=== PATIENT | female | born 1935 | race Two or more races ===

== ENCOUNTER 2022-07-24 12:35 | Inpatient (IN) | payer MEDICARE, OTHER ==
[~2022-07-24] VITALS: Ht 157.5 cm; Wt 54.5 kg
[~2022-07-24 12:35] MED LIST: BP PILL; [UNRECOGNIZED DRUG - REMARK]
[2022-07-24] MEDS ORDERED: 0.9% SODIUM CHLORIDE 10 ML SYRINGE IVP PRN ×2 (14:45→20:30)
[2022-07-24 15:11] LABS: BASOPHILS % (AUTO) 0.4 % (0.0-2.0); EOSINOPHILS % (AUTO) 0.1 % (1.0-6.0); HEMATOCRIT 33.6 % (36-46); HEMOGLOBIN 11.5 g/dL (12.0-16.0); LYMPHOCYTES # (AUTO) 1.9 K/uL (1.0-4.8); LYMPHOCYTES % (AUTO) 22.9 % (22.0-44.0); MEAN CORPUSCULAR HEMOGLOBIN 33.7 pg (26.0-34.0); MEAN CORPUSCULAR HGB CONC 34.2 G/dL (31.0-37.0); MEAN CORPUSCULAR VOLUME 99 fL (80-100); MONOCYTES # (AUTO) 0.9 K/uL (0.1-1.0); NEUTROPHILS # (AUTO) 5.4 K/uL (1.8-7.7); NEUTROPHILS % (AUTO) 65.6 % (40.0-70.0); PLATELET COUNT (AUTO) 211 K/uL (150-450); RED BLOOD CELL COUNT(AUTO) 3.41 MIL/uL (4.00-5.20); RED CELL DISTRIBUTION WIDTH 13.7 % (11.5-14.5)
[2022-07-24 15:16] LABS: COVID AG,FIA SOURCE NASAL SWAB
[2022-07-24 15:22] LABS: CALCIUM, TOTAL 8.6 mg/dL (8.8-10.5); CREATININE 1.55 mg/dL (0.60-1.30); POTASSIUM 3.7 mmol/L (3.5-5.1)
[2022-07-24 15:29] LABS: BILIRUBIN,TOTAL 1.1 mg/dL (0.1-1.0); TOTAL PROTEIN, SERUM 7.6 g/dL (6.4-8.2)
[2022-07-24 15:31] LABS: LACTIC ACID 1.1 mmol/L (0.4-2.0)
[2022-07-24 15:37] LABS: INFLUENZA TYPE A NEGATIVE FOR TYPE A (NEGATIVE); INFLUENZA TYPE B NEGATIVE FOR TYPE B (NEGATIVE)
[2022-07-24] MEDS ORDERED: ACETAMINOPHEN 500 MG TABLET PO ONE (16:15)
[2022-07-24 16:16] LABS: APPEARANCE,URINE CLEAR (CLEAR); BILIRUBIN,URINE NEGATIVE (NEGATIVE); GLUCOSE, URINE (UA) NEGATIVE (NEGATIVE); LEUKOCYTE ESTERASE ,URINE NEGATIVE (NEGATIVE); NITRATE,URINE NEGATIVE (NEGATIVE); OCCULT BLOOD,URINE NEGATIVE (NEGATIVE); PH,URINE 5.5 (5.0-8.0); PROTEIN,URINE 30-70 mg/dL (NEGATIVE); SPECIFIC GRAVITIY, URINE 1.022 (1.003-1.030); UROBILINOGEN,URINE <=1.0 mg/dL (<=1.0)
[2022-07-24] MEDS ORDERED: ACETAMINOPHEN 325 MG TABLET PO PRN ×2 (20:30→21:15)
[2022-07-24] MEDS ORDERED: ONDANSETRON HCL 4 MG/2 ML VIAL IVP PRN (20:30)
[2022-07-24] MEDS ORDERED: MORPHINE SULFATE 2 MG/ML SYRINGE IVP PRN (21:15)
[2022-07-24] MEDS ORDERED: MAGNESIUM HYDROXIDE SUSPENSION 30 ML UDCUP PO PRN (21:15)
[2022-07-24] MEDS ORDERED: REMDESIVIR 200 MG in SODIUM CHLORIDE 0.9% 250 ML IV ONE (22:00)
[2022-07-24] MEDS: OXYGEN THERAPY IH SCH (22:41)
[2022-07-24 22:47] LABS: D-DIMER 1.6 mg/L FEU (0.00-0.50); PROTHROMBIN TIME 10.8 SEC (9.4-11.6)
[2022-07-25] VITALS (7 sets, daily range): BP systolic 115–193; BP diastolic 57–79
[2022-07-25] MEDS: HydrALAZINE HCL 20 MG/ML VIAL IVP PRN (01:06)
[2022-07-25 06:46] LABS: BASOPHILS % (AUTO) 0.4 % (0.0-2.0); EOSINOPHILS % (AUTO) 0.3 % (1.0-6.0); HEMATOCRIT 36.4 % (36-46); HEMOGLOBIN 12.5 g/dL (12.0-16.0); LYMPHOCYTES # (AUTO) 0.8 K/uL (1.0-4.8); LYMPHOCYTES % (AUTO) 8.4 % (22.0-44.0); MEAN CORPUSCULAR HEMOGLOBIN 33.7 pg (26.0-34.0); MEAN CORPUSCULAR HGB CONC 34.4 G/dL (31.0-37.0); MEAN CORPUSCULAR VOLUME 98 fL (80-100); MONOCYTES # (AUTO) 0.4 K/uL (0.1-1.0); MONOCYTES % (AUTO) 4.6 % (2.0-9.0); NEUTROPHILS # (AUTO) 7.8 K/uL (1.8-7.7); PLATELET COUNT (AUTO) 211 K/uL (150-450); RED BLOOD CELL COUNT(AUTO) 3.71 MIL/uL (4.00-5.20); RED CELL DISTRIBUTION WIDTH 13.5 % (11.5-14.5)
[2022-07-25 06:49] LABS: NEUTROPHILS % (AUTO) 86.3 % (40.0-70.0)
[2022-07-25 07:04] LABS: BILIRUBIN,TOTAL 0.9 mg/dL (0.1-1.0); CALCIUM, TOTAL 8.4 mg/dL (8.8-10.5); CREATININE 1.32 mg/dL (0.60-1.30); POTASSIUM 3.7 mmol/L (3.5-5.1); TOTAL PROTEIN, SERUM 7.7 g/dL (6.4-8.2)
[2022-07-25] MEDS: PANTOPRAZOLE SODIUM 40 MG DR TABLET PO SCH (08:19)
[2022-07-25] MEDS: DOCUSATE SODIUM 100 MG CAPSULE PO SCH ×2 (08:19→21:00)
[2022-07-25] MEDS: HEPARIN SODIUM,PORCINE 5,000 UNITS/ML VIAL SQ SCH ×3 (08:19→15:31)
[2022-07-25] MEDS: DEXAMETHASONE 4 MG TABLET PO SCH (08:19)
[2022-07-25] MEDS: OXYGEN THERAPY IH SCH ×2 (08:20→20:00)
[2022-07-25] MEDS: ATORVASTATIN CALCIUM 20 MG TABLET PO SCH (17:25)
[2022-07-25] MEDS: ASPIRIN 81 MG DR TABLET PO SCH (17:25)
[2022-07-25] MEDS: METOPROLOL TARTRATE 25 MG TABLET PO SCH (20:57)
[2022-07-25] MEDS: REMDESIVIR 100 MG in SODIUM CHLORIDE 0.9% 250 ML IV SCH (20:59)
[2022-07-26 04:50] VITALS: BP 144/61
[2022-07-26 06:40] LABS: BASOPHILS % (AUTO) 0.2 % (0.0-2.0); EOSINOPHILS % (AUTO) 0 % (1.0-6.0); HEMATOCRIT 33.8 % (36-46); HEMOGLOBIN 11.7 g/dL (12.0-16.0); LYMPHOCYTES # (AUTO) 1.7 K/uL (1.0-4.8); LYMPHOCYTES % (AUTO) 19.9 % (22.0-44.0); MEAN CORPUSCULAR HEMOGLOBIN 33.8 pg (26.0-34.0); MEAN CORPUSCULAR HGB CONC 34.6 G/dL (31.0-37.0); MEAN CORPUSCULAR VOLUME 98 fL (80-100); MONOCYTES # (AUTO) 0.6 K/uL (0.1-1.0); MONOCYTES % (AUTO) 6.9 % (2.0-9.0); NEUTROPHILS # (AUTO) 6.2 K/uL (1.8-7.7); PLATELET COUNT (AUTO) 214 K/uL (150-450); RED BLOOD CELL COUNT(AUTO) 3.46 MIL/uL (4.00-5.20); RED CELL DISTRIBUTION WIDTH 13.5 % (11.5-14.5)
[2022-07-26 07:12] LABS: ALBUMIN 2.8 g/dL (3.4-5.0); BILIRUBIN,TOTAL 0.6 mg/dL (0.1-1.0); CALCIUM, TOTAL 8.2 mg/dL (8.8-10.5); CHOL/HDL RATIO 3.8 (3.9-5.7); CREATININE 1.57 mg/dL (0.60-1.30); POTASSIUM 3.5 mmol/L (3.5-5.1); TOTAL PROTEIN, SERUM 7.2 g/dL (6.4-8.2)
[2022-07-26 07:56] VITALS: BP 140/60
[2022-07-26] MEDS: OXYGEN THERAPY IH SCH ×2 (08:00→20:00)
[2022-07-26] MEDS: DEXAMETHASONE 4 MG TABLET PO SCH (08:55)
[2022-07-26] MEDS: HEPARIN SODIUM,PORCINE 5,000 UNITS/ML VIAL SQ SCH ×3 (08:55→16:00)
[2022-07-26] MEDS: METOPROLOL TARTRATE 25 MG TABLET PO SCH ×2 (08:55→20:17)
[2022-07-26] MEDS: PANTOPRAZOLE SODIUM 40 MG DR TABLET PO SCH (08:56)
[2022-07-26] MEDS: DOCUSATE SODIUM 100 MG CAPSULE PO SCH ×2 (08:56→20:17)
[2022-07-26] MEDS: ATORVASTATIN CALCIUM 20 MG TABLET PO SCH (08:56)
[2022-07-26] MEDS: ASPIRIN 81 MG DR TABLET PO SCH (08:56)
[2022-07-26] MEDS: AmLODIPine BESYLATE 5 MG TABLET PO SCH (08:56)
[2022-07-26 11:29] VITALS: BP 131/55
[2022-07-26 15:52] VITALS: BP 157/73
[2022-07-26 20:54] VITALS: BP 156/73
[2022-07-27] VITALS (7 sets, daily range): BP systolic 134–161; BP diastolic 64–76
[2022-07-27] MEDS: REMDESIVIR 100 MG in SODIUM CHLORIDE 0.9% 250 ML IV SCH ×2 (00:05→21:33)
[2022-07-27] MEDS: HEPARIN SODIUM,PORCINE 5,000 UNITS/ML VIAL SQ SCH ×3 (00:05→16:25)
[2022-07-27 06:41] LABS: BASOPHILS % (AUTO) 0.2 % (0.0-2.0); EOSINOPHILS % (AUTO) 0 % (1.0-6.0); HEMATOCRIT 39.5 % (36-46); HEMOGLOBIN 13.4 g/dL (12.0-16.0); LYMPHOCYTES # (AUTO) 1.6 K/uL (1.0-4.8); LYMPHOCYTES % (AUTO) 16.1 % (22.0-44.0); MEAN CORPUSCULAR HEMOGLOBIN 33.2 pg (26.0-34.0); MEAN CORPUSCULAR VOLUME 98 fL (80-100); MONOCYTES # (AUTO) 0.7 K/uL (0.1-1.0); MONOCYTES % (AUTO) 7.5 % (2.0-9.0); NEUTROPHILS # (AUTO) 7.6 K/uL (1.8-7.7); NEUTROPHILS % (AUTO) 76.2 % (40.0-70.0); PLATELET COUNT (AUTO) 244 K/uL (150-450); RED BLOOD CELL COUNT(AUTO) 4.05 MIL/uL (4.00-5.20); RED CELL DISTRIBUTION WIDTH 13.8 % (11.5-14.5)
[2022-07-27 07:03] LABS: ALBUMIN 3.2 g/dL (3.4-5.0); BILIRUBIN,TOTAL 0.6 mg/dL (0.1-1.0); CALCIUM, TOTAL 8.5 mg/dL (8.8-10.5); CREATININE 1.54 mg/dL (0.60-1.30); POTASSIUM 3.4 mmol/L (3.5-5.1); TOTAL PROTEIN, SERUM 8.1 g/dL (6.4-8.2)
[2022-07-27] MEDS ORDERED: POTASSIUM CHLORIDE 20 MEQ ER TABLET PO ONE (09:15)
[2022-07-27] MEDS: METOPROLOL TARTRATE 25 MG TABLET PO SCH ×2 (09:22→21:33)
[2022-07-27] MEDS: ATORVASTATIN CALCIUM 20 MG TABLET PO SCH (09:22)
[2022-07-27] MEDS: ASPIRIN 81 MG DR TABLET PO SCH (09:22)
[2022-07-27] MEDS: PANTOPRAZOLE SODIUM 40 MG DR TABLET PO SCH (09:23)
[2022-07-27] MEDS: DEXAMETHASONE 4 MG TABLET PO SCH (09:23)
[2022-07-27] MEDS: DOCUSATE SODIUM 100 MG CAPSULE PO SCH ×2 (09:23→21:33)
[2022-07-27] MEDS: AmLODIPine BESYLATE 5 MG TABLET PO SCH (09:23)
[2022-07-27] MEDS: OXYGEN THERAPY IH SCH (09:25)
[2022-07-28] MEDS: HEPARIN SODIUM,PORCINE 5,000 UNITS/ML VIAL SQ SCH ×3 (00:03→16:58)
[2022-07-28] MEDS: REMDESIVIR 100 MG in SODIUM CHLORIDE 0.9% 250 ML IV SCH ×2 (00:15→21:15)
[2022-07-28 04:15] VITALS: BP 154/89
[2022-07-28 07:27] VITALS: BP 148/76
[2022-07-28 07:46] LABS: ALBUMIN 3.1 g/dL (3.4-5.0); BILIRUBIN,TOTAL 0.6 mg/dL (0.1-1.0); CALCIUM, TOTAL 8.2 mg/dL (8.8-10.5); CREATININE 1.42 mg/dL (0.60-1.30); POTASSIUM 3.9 mmol/L (3.5-5.1); TOTAL PROTEIN, SERUM 7.6 g/dL (6.4-8.2)
[2022-07-28] MEDS: OXYGEN THERAPY IH SCH ×2 (08:00→20:00)
[2022-07-28] MEDS: AmLODIPine BESYLATE 10 MG TABLET PO SCH (09:14)
[2022-07-28] MEDS: DEXAMETHASONE 4 MG TABLET PO SCH (09:14)
[2022-07-28] MEDS: METOPROLOL TARTRATE 25 MG TABLET PO SCH ×2 (09:14→21:15)
[2022-07-28] MEDS: ATORVASTATIN CALCIUM 20 MG TABLET PO SCH (09:15)
[2022-07-28] MEDS: PANTOPRAZOLE SODIUM 40 MG DR TABLET PO SCH (09:15)
[2022-07-28] MEDS: DOCUSATE SODIUM 100 MG CAPSULE PO SCH ×2 (09:15→21:15)
[2022-07-28] MEDS: ASPIRIN 81 MG DR TABLET PO SCH (09:15)
[2022-07-28 10:55] VITALS: BP 140/72
[2022-07-28 15:01] VITALS: BP 144/76
[2022-07-28 19:41] VITALS: BP 124/57
[2022-07-28] MEDS: HYDROCODONE/ACETAMINOPHEN 5-325 MG TABLET PO PRN (21:15)
[2022-07-28] MEDS: ZOLPIDEM TARTRATE 5 MG TABLET PO PRN (21:15)
[2022-07-29] MEDS: HEPARIN SODIUM,PORCINE 5,000 UNITS/ML VIAL SQ SCH ×3 (00:03→17:00)
[2022-07-29 03:58] VITALS: BP 141/59
[2022-07-29 07:11] VITALS: BP 142/68
[2022-07-29] MEDS: OXYGEN THERAPY IH SCH ×2 (08:00→20:03)
[2022-07-29] MEDS: AmLODIPine BESYLATE 10 MG TABLET PO SCH (08:46)
[2022-07-29] MEDS: PANTOPRAZOLE SODIUM 40 MG DR TABLET PO SCH (08:46)
[2022-07-29] MEDS: DOCUSATE SODIUM 100 MG CAPSULE PO SCH ×2 (08:46→20:36)
[2022-07-29] MEDS: ATORVASTATIN CALCIUM 20 MG TABLET PO SCH (08:46)
[2022-07-29] MEDS: DEXAMETHASONE 4 MG TABLET PO SCH (08:47)
[2022-07-29] MEDS: ASPIRIN 81 MG DR TABLET PO SCH (08:47)
[2022-07-29] MEDS: METOPROLOL TARTRATE 25 MG TABLET PO SCH ×2 (08:49→20:36)
[2022-07-29] MEDS ORDERED: METO25 PO (09:05)
[2022-07-29] MEDS ORDERED: AMLO-258 PO (09:05)
[2022-07-29] MEDS ORDERED: ATOR20TA65 PO (09:05)
[2022-07-29] MEDS ORDERED: ASPI-1444 PO (09:05)
[2022-07-29 10:51] VITALS: BP 146/78
[2022-07-29 15:15] VITALS: BP 132/68
[2022-07-29 19:48] VITALS: BP 161/78
[2022-07-29] MEDS: HYDROCODONE/ACETAMINOPHEN 5-325 MG TABLET PO PRN (20:36)
[2022-07-29] MEDS: ZOLPIDEM TARTRATE 5 MG TABLET PO PRN (20:37)
[2022-07-29 20:39] VITALS: BP 159/75
[2022-07-30 00:54] VITALS: BP 165/67
[2022-07-30 05:50] VITALS: BP 169/70
[2022-07-30] MEDS: HydrALAZINE HCL 20 MG/ML VIAL IVP PRN (06:08)
[2022-07-30 07:22] VITALS: BP 158/78
[2022-07-30] MEDS: METOPROLOL TARTRATE 25 MG TABLET PO SCH ×2 (09:10→20:23)
[2022-07-30] MEDS: ASPIRIN 81 MG DR TABLET PO SCH (09:10)
[2022-07-30] MEDS: AmLODIPine BESYLATE 10 MG TABLET PO SCH (09:12)
[2022-07-30] MEDS: DOCUSATE SODIUM 100 MG CAPSULE PO SCH ×2 (09:12→20:24)
[2022-07-30] MEDS: DEXAMETHASONE 4 MG TABLET PO SCH (09:12)
[2022-07-30] MEDS: HEPARIN SODIUM,PORCINE 5,000 UNITS/ML VIAL SQ SCH ×3 (09:12→17:50)
[2022-07-30] MEDS: PANTOPRAZOLE SODIUM 40 MG DR TABLET PO SCH (09:12)
[2022-07-30] MEDS: ATORVASTATIN CALCIUM 20 MG TABLET PO SCH (09:12)
[2022-07-30] MEDS: OXYGEN THERAPY IH SCH ×2 (09:22→20:00)
[2022-07-30 11:00] VITALS: BP 121/56
[2022-07-30 15:00] VITALS: BP 136/68
[2022-07-30 19:10] VITALS: BP 141/74
[2022-07-30] MEDS: ZOLPIDEM TARTRATE 5 MG TABLET PO PRN (20:24)
[2022-07-31] MEDS: HEPARIN SODIUM,PORCINE 5,000 UNITS/ML VIAL SQ SCH ×4 (00:22→23:08)
[2022-07-31 05:03] VITALS: BP 126/64
[2022-07-31 08:29] VITALS: BP 133/70
[2022-07-31] MEDS: DOCUSATE SODIUM 100 MG CAPSULE PO SCH ×2 (08:49→20:08)
[2022-07-31] MEDS: METOPROLOL TARTRATE 25 MG TABLET PO SCH ×2 (08:49→20:08)
[2022-07-31] MEDS: ATORVASTATIN CALCIUM 20 MG TABLET PO SCH (08:49)
[2022-07-31] MEDS: DEXAMETHASONE 4 MG TABLET PO SCH (08:49)
[2022-07-31] MEDS: PANTOPRAZOLE SODIUM 40 MG DR TABLET PO SCH (08:50)
[2022-07-31] MEDS: AmLODIPine BESYLATE 10 MG TABLET PO SCH (08:50)
[2022-07-31] MEDS: OXYGEN THERAPY IH SCH ×2 (08:50→20:00)
[2022-07-31] MEDS: ASPIRIN 81 MG DR TABLET PO SCH (08:50)
[2022-07-31 12:17] VITALS: BP 127/69
[2022-07-31 15:18] VITALS: BP 127/56
[2022-07-31 20:16] VITALS: BP 131/74
[2022-07-31 21:22] VITALS: BP 136/59
[2022-07-31] MEDS: HYDROCODONE/ACETAMINOPHEN 5-325 MG TABLET PO PRN (23:13)
[2022-08-01 04:46] VITALS: BP 127/64
[2022-08-01 07:57] VITALS: BP 143/60
[2022-08-01] MEDS: OXYGEN THERAPY IH SCH ×2 (08:00→20:25)
[2022-08-01 08:37] LABS: BASOPHILS % (AUTO) 0.6 % (0.0-2.0); EOSINOPHILS % (AUTO) 0 % (1.0-6.0); HEMATOCRIT 28.8 % (36-46); HEMOGLOBIN 9.8 g/dL (12.0-16.0); LYMPHOCYTES # (AUTO) 2.7 K/uL (1.0-4.8); LYMPHOCYTES % (AUTO) 25.8 % (22.0-44.0); MEAN CORPUSCULAR HEMOGLOBIN 33.2 pg (26.0-34.0); MEAN CORPUSCULAR HGB CONC 34.1 G/dL (31.0-37.0); MEAN CORPUSCULAR VOLUME 97 fL (80-100); MONOCYTES % (AUTO) 9.9 % (2.0-9.0); NEUTROPHILS # (AUTO) 6.7 K/uL (1.8-7.7); NEUTROPHILS % (AUTO) 63.7 % (40.0-70.0); PLATELET COUNT (AUTO) 206 K/uL (150-450); RED BLOOD CELL COUNT(AUTO) 2.96 MIL/uL (4.00-5.20); RED CELL DISTRIBUTION WIDTH 13.8 % (11.5-14.5)
[2022-08-01 09:05] LABS: ALBUMIN 2.7 g/dL (3.4-5.0); BILIRUBIN,TOTAL 0.6 mg/dL (0.1-1.0); CALCIUM, TOTAL 8.1 mg/dL (8.8-10.5); CREATININE 1.33 mg/dL (0.60-1.30); POTASSIUM 3.7 mmol/L (3.5-5.1); TOTAL PROTEIN, SERUM 6.2 g/dL (6.4-8.2)
[2022-08-01] MEDS: PANTOPRAZOLE SODIUM 40 MG DR TABLET PO SCH (09:31)
[2022-08-01] MEDS: HEPARIN SODIUM,PORCINE 5,000 UNITS/ML VIAL SQ SCH ×3 (09:31→23:21)
[2022-08-01] MEDS: DEXAMETHASONE 2 MG TABLET PO SCH (09:31)
[2022-08-01] MEDS: ASPIRIN 81 MG DR TABLET PO SCH (09:32)
[2022-08-01] MEDS: DOCUSATE SODIUM 100 MG CAPSULE PO SCH ×2 (09:32→20:24)
[2022-08-01] MEDS: ATORVASTATIN CALCIUM 20 MG TABLET PO SCH (09:32)
[2022-08-01] MEDS: METOPROLOL TARTRATE 25 MG TABLET PO SCH ×2 (09:32→20:24)
[2022-08-01] MEDS: AmLODIPine BESYLATE 10 MG TABLET PO SCH (09:32)
[2022-08-01] MEDS: ONDANSETRON HCL 4 MG/2 ML VIAL IVP PRN (09:41)
[2022-08-01] MEDS: HYDROCODONE/ACETAMINOPHEN 5-325 MG TABLET PO PRN (12:19)
[2022-08-01] MEDS: BISACODYL 10 MG RECTAL RECTAL SUPPOSITORY PR PRN (12:19)
[2022-08-01 16:05] VITALS: BP 124/55
[2022-08-01 20:14] VITALS: BP 119/51
[2022-08-02] MEDS: ONDANSETRON HCL 4 MG/2 ML VIAL IVP PRN ×3 (03:05→20:35)
[2022-08-02 04:34] VITALS: BP 144/62
[2022-08-02 08:00] VITALS: BP 131/60
[2022-08-02] MEDS: DEXAMETHASONE 2 MG TABLET PO SCH (09:46)
[2022-08-02] MEDS: DOCUSATE SODIUM 100 MG CAPSULE PO SCH ×2 (09:46→20:30)
[2022-08-02] MEDS: HEPARIN SODIUM,PORCINE 5,000 UNITS/ML VIAL SQ SCH ×3 (09:46→23:44)
[2022-08-02] MEDS: PANTOPRAZOLE SODIUM 40 MG DR TABLET PO SCH (09:47)
[2022-08-02] MEDS: ATORVASTATIN CALCIUM 20 MG TABLET PO SCH (09:47)
[2022-08-02] MEDS: ASPIRIN 81 MG DR TABLET PO SCH (09:47)
[2022-08-02] MEDS: METOPROLOL TARTRATE 25 MG TABLET PO SCH ×2 (09:48→20:30)
[2022-08-02] MEDS: AmLODIPine BESYLATE 10 MG TABLET PO SCH (09:48)
[2022-08-02] MEDS: OXYGEN THERAPY IH SCH ×2 (09:58→20:32)
[2022-08-02 16:24] VITALS: BP 136/60
[2022-08-02 20:39] VITALS: BP 142/60
[2022-08-03 04:20] VITALS: BP 142/57
[2022-08-03 07:29] VITALS: BP 131/64
[2022-08-03] MEDS: AmLODIPine BESYLATE 10 MG TABLET PO SCH (08:30)
[2022-08-03] MEDS: HEPARIN SODIUM,PORCINE 5,000 UNITS/ML VIAL SQ SCH ×3 (08:30→23:39)
[2022-08-03] MEDS: DOCUSATE SODIUM 100 MG CAPSULE PO SCH ×3 (08:30→21:21)
[2022-08-03] MEDS: PANTOPRAZOLE SODIUM 40 MG DR TABLET PO SCH (08:30)
[2022-08-03] MEDS: METOPROLOL TARTRATE 25 MG TABLET PO SCH ×2 (08:30→21:21)
[2022-08-03] MEDS: ASPIRIN 81 MG DR TABLET PO SCH (08:31)
[2022-08-03] MEDS: ATORVASTATIN CALCIUM 20 MG TABLET PO SCH (08:31)
[2022-08-03] MEDS: OXYGEN THERAPY IH SCH ×2 (08:53→20:00)
[2022-08-03 10:03] LABS: BASOPHILS % (AUTO) 0.3 % (0.0-2.0); EOSINOPHILS % (AUTO) 0 % (1.0-6.0); HEMATOCRIT 23.7 % (36-46); HEMOGLOBIN 7.9 g/dL (12.0-16.0); LYMPHOCYTES # (AUTO) 1.5 K/uL (1.0-4.8); LYMPHOCYTES % (AUTO) 8.7 % (22.0-44.0); MEAN CORPUSCULAR HEMOGLOBIN 32.6 pg (26.0-34.0); MEAN CORPUSCULAR HGB CONC 33.3 G/dL (31.0-37.0); MEAN CORPUSCULAR VOLUME 98 fL (80-100); MONOCYTES # (AUTO) 1.3 K/uL (0.1-1.0); MONOCYTES % (AUTO) 7.5 % (2.0-9.0); NEUTROPHILS # (AUTO) 14.7 K/uL (1.8-7.7); NEUTROPHILS % (AUTO) 83.5 % (40.0-70.0); PLATELET COUNT (AUTO) 180 K/uL (150-450); RED BLOOD CELL COUNT(AUTO) 2.42 MIL/uL (4.00-5.20); RED CELL DISTRIBUTION WIDTH 14.2 % (11.5-14.5)
[2022-08-03 10:13] LABS: CALCIUM, TOTAL 8.2 mg/dL (8.8-10.5); CREATININE 1.84 mg/dL (0.60-1.30); POTASSIUM 4.1 mmol/L (3.5-5.1)
[2022-08-03] MEDS: DEXTROSE 5%-0.45% SODIUM CHL 1,000 ML IV SCH (11:24)
[2022-08-03] MEDS: ONDANSETRON HCL 4 MG/2 ML VIAL IVP PRN ×2 (11:53→18:29)
[2022-08-03 12:08] LABS: COVID AG,FIA SOURCE NASOPHARYNGEAL
[2022-08-03 12:17] LABS: APPEARANCE,URINE CLEAR (CLEAR); BILIRUBIN,URINE NEGATIVE (NEGATIVE); GLUCOSE, URINE (UA) NEGATIVE (NEGATIVE); KETONES,URINE NEGATIVE (NEGATIVE); LEUKOCYTE ESTERASE ,URINE SMALL (NEGATIVE); NITRATE,URINE NEGATIVE (NEGATIVE); OCCULT BLOOD,URINE NEGATIVE (NEGATIVE); PROTEIN,URINE TRACE mg/dL (NEGATIVE); SPECIFIC GRAVITIY, URINE 1.019 (1.003-1.030); UROBILINOGEN,URINE <=1.0 mg/dL (<=1.0)
[2022-08-03 12:33] LABS: AMORPHOUS SEDIMENT,UR Few /LPF (None Seen); BACTERIA,URINE Many /HPF (None Seen); RBC,URINE 0-2 /HPF (0-2); SQUAMOUS EPITHELIAL CELL,UR Few /LPF (None Seen)
[2022-08-03 16:12] VITALS: BP 134/51
[2022-08-03] MEDS: CefTRIAXone 1 GM/DEXTROSE 50 ML IV SCH (16:15)
[2022-08-03 20:15] VITALS: BP 134/59
[2022-08-03 23:45] VITALS: BP 137/58
[2022-08-04] VITALS (14 sets, daily range): BP systolic 129–162; BP diastolic 55–68
[2022-08-04] MEDS: DEXTROSE 5%-0.45% SODIUM CHL 1,000 ML IV SCH (08:23)
[2022-08-04] MEDS: DOCUSATE SODIUM 100 MG CAPSULE PO SCH ×2 (08:25→21:24)
[2022-08-04] MEDS: METOPROLOL TARTRATE 25 MG TABLET PO SCH ×2 (08:25→21:24)
[2022-08-04] MEDS: ASPIRIN 81 MG DR TABLET PO SCH (08:25)
[2022-08-04] MEDS: ATORVASTATIN CALCIUM 20 MG TABLET PO SCH (08:25)
[2022-08-04] MEDS: AmLODIPine BESYLATE 10 MG TABLET PO SCH (08:25)
[2022-08-04] MEDS: PANTOPRAZOLE SODIUM 40 MG DR TABLET PO SCH (08:25)
[2022-08-04] MEDS: OXYGEN THERAPY IH SCH ×2 (08:31→21:25)
[2022-08-04] MEDS: HEPARIN SODIUM,PORCINE 5,000 UNITS/ML VIAL SQ SCH ×4 (11:01→23:53)
[2022-08-04] MEDS: ONDANSETRON HCL 4 MG/2 ML VIAL IVP PRN (11:08)
[2022-08-04 12:58] LABS: BASOPHILS % (AUTO) 0.1 % (0.0-2.0); EOSINOPHILS % (AUTO) 0 % (1.0-6.0); LYMPHOCYTES # (AUTO) 1.8 K/uL (1.0-4.8); LYMPHOCYTES % (AUTO) 10.3 % (22.0-44.0); MEAN CORPUSCULAR HEMOGLOBIN 32.2 pg (26.0-34.0); MEAN CORPUSCULAR HGB CONC 32.9 G/dL (31.0-37.0); MEAN CORPUSCULAR VOLUME 98 fL (80-100); MONOCYTES % (AUTO) 5.9 % (2.0-9.0); NEUTROPHILS # (AUTO) 14.6 K/uL (1.8-7.7); NEUTROPHILS % (AUTO) 83.7 % (40.0-70.0); PLATELET COUNT (AUTO) 172 K/uL (150-450); RED BLOOD CELL COUNT(AUTO) 2.03 MIL/uL (4.00-5.20); RED CELL DISTRIBUTION WIDTH 13.7 % (11.5-14.5)
[2022-08-04 13:06] LABS: CALCIUM, TOTAL 7.8 mg/dL (8.8-10.5); CREATININE 1.65 mg/dL (0.60-1.30); POTASSIUM 3.8 mmol/L (3.5-5.1)
[2022-08-04 13:07] LABS: HEMATOCRIT 19.8 % (36-46); HEMOGLOBIN 6.5 g/dL (12.0-16.0)
[2022-08-04] MEDS ORDERED: SODIUM CHLORIDE 0.9% 500 ML IV ONE (13:58)
[2022-08-04] MEDS: CefTRIAXone 1 GM/DEXTROSE 50 ML IV SCH (14:38)
[2022-08-04] MEDS: HYDROCODONE/ACETAMINOPHEN 5-325 MG TABLET PO PRN (17:42)
[2022-08-05 05:00] VITALS: BP 128/67
[2022-08-05] MEDS: DEXTROSE 5%-0.45% SODIUM CHL 1,000 ML IV SCH ×2 (05:11→20:27)
[2022-08-05 07:26] VITALS: BP 149/65
[2022-08-05] MEDS: DOCUSATE SODIUM 100 MG CAPSULE PO SCH ×2 (08:16→20:25)
[2022-08-05] MEDS: AmLODIPine BESYLATE 10 MG TABLET PO SCH (08:16)
[2022-08-05] MEDS: METOPROLOL TARTRATE 25 MG TABLET PO SCH ×2 (08:16→20:25)
[2022-08-05] MEDS: ASPIRIN 81 MG DR TABLET PO SCH (08:16)
[2022-08-05] MEDS: OXYGEN THERAPY IH SCH ×2 (08:17→20:32)
[2022-08-05] MEDS: ATORVASTATIN CALCIUM 20 MG TABLET PO SCH (08:17)
[2022-08-05] MEDS: PANTOPRAZOLE SODIUM 40 MG DR TABLET PO SCH (08:17)
[2022-08-05] MEDS: HEPARIN SODIUM,PORCINE 5,000 UNITS/ML VIAL SQ SCH ×3 (08:17→23:34)
[2022-08-05 11:49] LABS: COVID AG,FIA SOURCE NASAL SWAB
[2022-08-05 15:39] VITALS: BP 131/57
[2022-08-05] MEDS: CefTRIAXone 1 GM/DEXTROSE 50 ML IV SCH (16:15)
[2022-08-05 19:45] VITALS: BP 140/60
[2022-08-06 05:30] VITALS: BP 137/62
[2022-08-06] MEDS: PANTOPRAZOLE SODIUM 40 MG DR TABLET PO SCH (08:00)
[2022-08-06] MEDS: DOCUSATE SODIUM 100 MG CAPSULE PO SCH ×2 (08:00→20:47)
[2022-08-06] MEDS: ATORVASTATIN CALCIUM 20 MG TABLET PO SCH (08:00)
[2022-08-06] MEDS: ASPIRIN 81 MG DR TABLET PO SCH (08:00)
[2022-08-06] MEDS: AmLODIPine BESYLATE 10 MG TABLET PO SCH (08:00)
[2022-08-06] MEDS: METOPROLOL TARTRATE 25 MG TABLET PO SCH ×2 (08:00→20:47)
[2022-08-06] MEDS: OXYGEN THERAPY IH SCH ×2 (08:01→20:48)
[2022-08-06] MEDS: HEPARIN SODIUM,PORCINE 5,000 UNITS/ML VIAL SQ SCH ×2 (08:01→15:35)
[2022-08-06 08:02] VITALS: BP 156/62
[2022-08-06 08:55] LABS: COVID AG,FIA SOURCE NASAL SWAB
[2022-08-06] MEDS: CefTRIAXone 1 GM/DEXTROSE 50 ML IV SCH (15:34)
[2022-08-06 16:34] VITALS: BP 156/64
[2022-08-06] MEDS: DEXTROSE 5%-0.45% SODIUM CHL 1,000 ML IV SCH (17:19)
[2022-08-06] MEDS: HYDROCODONE/ACETAMINOPHEN 5-325 MG TABLET PO PRN (20:47)
[2022-08-06 21:00] VITALS: BP 141/66
[2022-08-07] MEDS: HEPARIN SODIUM,PORCINE 5,000 UNITS/ML VIAL SQ SCH ×2 (01:03→08:00)
[2022-08-07 04:00] VITALS: BP 139/70
[2022-08-07] MEDS: BISACODYL 10 MG RECTAL RECTAL SUPPOSITORY PR PRN (06:22)
[2022-08-07 07:39] VITALS: BP 140/76
[2022-08-07] MEDS: OXYGEN THERAPY IH SCH (08:00)
[2022-08-07] MEDS: METOPROLOL TARTRATE 25 MG TABLET PO SCH (08:24)
[2022-08-07] MEDS: PANTOPRAZOLE SODIUM 40 MG DR TABLET PO SCH (08:25)
[2022-08-07] MEDS: ASPIRIN 81 MG DR TABLET PO SCH (08:25)
[2022-08-07] MEDS: ATORVASTATIN CALCIUM 20 MG TABLET PO SCH (08:25)
[2022-08-07] MEDS: AmLODIPine BESYLATE 10 MG TABLET PO SCH (08:25)
[2022-08-07] MEDS: DOCUSATE SODIUM 100 MG CAPSULE PO SCH (08:36)
[2022-08-07 09:54] LABS: COVID AG,FIA SOURCE NASOPHARYNGEAL
== END 2022-08-07 14:41 | disposition hospice, home (50) | DRG 177 ==
LOC: EMS 12:35 → 5S 18:45 → 5N 07-26 23:05 → 6N 07-31 20:40
PROVIDERS: ADMIT Internal Medicine; ATTEND Internal Medicine
PROC: XW033E5 Introduction of Remdesivir Anti-infective into Peripheral Vein, Percutaneous Approach, New Technology Group 5 (ICD-10-PCS; principal; 2022-07-24)
PROC: 30233N1 Transfusion of Nonautologous Red Blood Cells into Peripheral Vein, Percutaneous Approach (ICD-10-PCS; 2022-08-04)
DX: U07.1 COVID-19 (principal); E43 Unspecified severe protein-calorie malnutrition; J12.82 Pneumonia due to coronavirus disease 2019; J96.91 Respiratory failure, unspecified with hypoxia; E87.1 Hypo-osmolality and hyponatremia; N17.9 Acute kidney failure, unspecified; N39.0 Urinary tract infection, site not specified; D63.8 Anemia in other chronic diseases classified elsewhere; E11.22 Type 2 diabetes mellitus with diabetic chronic kidney disease; R53.81 Other malaise; Z66 Do not resuscitate; E11.319 Type 2 diabetes mellitus with unspecified diabetic retinopathy without macular edema; R77.8 Other specified abnormalities of plasma proteins; I08.0 Rheumatic disorders of both mitral and aortic valves; H54.62 Unqualified visual loss, left eye, normal vision right eye; E87.6 Hypokalemia; F03.90 Unspecified dementia, unspecified severity, without behavioral disturbance, psychotic disturbance, mood disturbance, and anxiety; I12.9 Hypertensive chronic kidney disease with stage 1 through stage 4 chronic kidney disease, or unspecified chronic kidney disease; I45.10 Unspecified right bundle-branch block; N18.9 Chronic kidney disease, unspecified; R62.7 Adult failure to thrive; Z79.4 Long term (current) use of insulin; Z68.22 Body mass index [BMI] 22.0-22.9, adult; Z88.8 Allergy status to other drugs, medicaments and biological substances; Z74.01 Bed confinement status
CPT/HCPCS: 51701; 51702; 70450; 71045; 80048; 80053; 80061; 81001; 81003; 82550; 83605; 83880; 84132; 84145; 84484; 85025; 85379; 85610; 86850; 86900; 86901; 86923; 87040; 87086; 87804; 93005; 93306; 97110; 97116; 97162; 97530; 99285; J0360; J0696; J1644; J2405; J7040; J7050; J8540; P9016; Q9967; 36415-L1; 36415-TC